=== PATIENT | male | born 1970 | race Caucasian/White ===

== ENCOUNTER 2021-06-27 13:24 | Outpatient (CLI) | payer BC, SELFPAY | END 2021-06-27 13:25 | disposition home or self-care (01) | LOC: WOUND 13:30 | PROVIDERS: Family Provider Nurse Practitioner; PCP Nurse Practitioner; Visit Provider Emergency Medicine | DX: I96 Gangrene, not elsewhere classified (principal); I87.2 Venous insufficiency (chronic) (peripheral); L97.322 Non-pressure chronic ulcer of left ankle with fat layer exposed; F17.210 Nicotine dependence, cigarettes, uncomplicated | CPT/HCPCS: 11042; 87070; 87176; 87205; 99213 ==

== ENCOUNTER 2021-06-27 15:48 | Outpatient (CLI) | payer BC, SELFPAY ==
--- NOTE | 2021-06-27 15:52 | XRR_ITS ---
PROCEDURE INFORMATION: Exam: XR Left Foot Exam date and time: 06/27/2021 3:52 PM Age: 50 years old Clinical indication: Condition or disease; Other: , Non pressure ulcer; Patient HX: Non healing ulcer since apr 10. Pain medial side of left heel area; Additional info: Venous insufficiency, non pressure ulcer, chronic ulcer lt colleen TECHNIQUE: Imaging protocol: XR Left foot. Views: 3 or more views. COMPARISON: No relevant prior studies available. FINDINGS: Bones/joints: Osseous structures are intact. No irregular osseous erosions. Prominent enthesophyte at the Achilles insertion. Small plantar calcaneal spur. Soft tissues: Normal. XR/XR foot LT min 3V* [id number] IMPRESSION: No evidence of osteomyelitis.
== END 2021-06-27 15:49 | disposition home or self-care (01) ==
PROVIDERS: Family Provider Nurse Practitioner; Visit Provider Emergency Medicine
DX: I87.2 Venous insufficiency (chronic) (peripheral) (principal); L97.522 Non-pressure chronic ulcer of other part of left foot with fat layer exposed
CPT/HCPCS: 73630

== ENCOUNTER 2021-06-30 08:18 | Outpatient (CLI) | payer BC, SELFPAY ==
--- NOTE | 2021-06-30 08:24 | NM_ITS ---
WS: [id number] THREE-PHASE BONE SCAN HISTORY: NON PRESSURE CHRONIC ULCER L FOOT/? OSTEOMYELITIS COMPARISON: LEFT foot radiograph 06/27/2021. Patient is is injected with 25.1 mCi Tc99m HDP intravenously. Immediate angiographic phase imaging is performed over the area of concern. Static blood pool imaging also performed. Two-hour whole-body sc intigrams performed in anterior and posterior projections. Additional large field of view imaging sub mitted as necessary. Angiographic phase and blood pool phase imaging negative for acute process involving the LEFT foot. V ayad minimal hyperemia in the mid RIGHT foot. On the delayed imaging there is moderate increased uptake bilaterally within the mid feet. This is pr obably due to osteoarthritic changes. Seen on the lateral projection of the LEFT foot is a focal area of intense uptake. This corresponds to the enthesopathy at the Achilles tendon. Scan is not positive in all 3 phases in this location, only on the delayed imaging. Mild AC joint osteoarthritis. Normal soft tissue uptake. Renal uptake is identified. NM/NM bone 3 phase 23636 IMPRESSION: 1. Three-phase bone scan does not confirm osteomyelitis or cellulitis. 2. There is a focal area of moderate uptake involving the posterior calcaneus at the site of the enthesopathy associated with the Achilles tendon. No fractur e identified on the radiograph. May represent an acute inflammatory process of the enthesopathy. 3. Bilateral midfoot osteoarthritis.
== END 2021-06-30 08:19 | disposition home or self-care (01) ==
LOC: RAD 08:22
PROVIDERS: PCP Family Medicine; Visit Provider Emergency Medicine
DX: L97.529 Non-pressure chronic ulcer of other part of left foot with unspecified severity (principal); M19.072 Primary osteoarthritis, left ankle and foot
CPT/HCPCS: 78315; A9561

== ENCOUNTER 2021-07-03 14:59 | Outpatient (CLI) | payer BC, SELFPAY ==
--- NOTE | 2021-07-03 15:08 | USCV_ITS ---
Wagner Linares Age: 50 Gender: M : 1970 Exam Date: 07/03/2021 16:17 Ordering Phys: Taisha Rosa DO Technologist: REBECA Exam Location: [facility] [place] Indication: HISTORY: PROCEDURES: FINDINGS: Reflux is noted within the right popliteal vein, GSV MID, GSV at the below-knee, and SSV MID. There is reflux noted in the left popliteal vein. Patient had GSV removed in 2008 in the left lower extremity. Left SSV not identified today. There appears to be thrombus within the varicosities located in the left groin and prox thigh. CONCLUSIONS 1. No evidence of DVT bilaterally. 2. Significant reflux of greater than 1000 ms were noted in the popliteal veins bilaterally 3. The greater saphenous vein tributaries in the left groin were found to have varicosities with thrombus formation(superficial vein thrombosis) 4. Significant venous reflux of greater than 500 ms were noted on the right side at the mid greater saphenous vein, below-knee greater saphenous vein and mid small saphenous vein segments. These venous segments where found to be measuring anywhere from 0.3 to 0.47 cm in diameter. The greater saphenous vein segments were greater than 1 cm deep from the surface. The small saphenous vein segment was 0.9 cm deep from the surface 5. The greater saphenous vein on the left side apparently was removed in 2008. The small saphenous vein segment on the left side could not be identified. Dr Alis Awad MD [facility] (Electronically Signed) Final Date: 07 July 2021 09:14 S
== END 2021-07-03 15:00 | disposition home or self-care (01) ==
LOC: RAD 15:00
PROVIDERS: PCP Family Medicine; Visit Provider Emergency Medicine
DX: L97.522 Non-pressure chronic ulcer of other part of left foot with fat layer exposed (principal); I87.2 Venous insufficiency (chronic) (peripheral)
CPT/HCPCS: 93970

== ENCOUNTER 2021-07-04 14:05 | Outpatient (CLI) | payer BC, SELFPAY | END 2021-07-04 14:06 | disposition home or self-care (01) | LOC: WOUND 14:06 | PROVIDERS: PCP Family Medicine; Visit Provider Emergency Medicine | DX: I96 Gangrene, not elsewhere classified (principal); I87.2 Venous insufficiency (chronic) (peripheral); L97.322 Non-pressure chronic ulcer of left ankle with fat layer exposed; F17.210 Nicotine dependence, cigarettes, uncomplicated | CPT/HCPCS: 11042; 99212 ==

== ENCOUNTER 2021-07-11 13:28 | Outpatient (CLI) | payer BC, SELFPAY | END 2021-07-11 13:29 | disposition home or self-care (01) | LOC: WOUND 13:29 | PROVIDERS: PCP Family Medicine; Visit Provider Emergency Medicine | DX: I87.2 Venous insufficiency (chronic) (peripheral) (principal); L97.522 Non-pressure chronic ulcer of other part of left foot with fat layer exposed | CPT/HCPCS: 11042 ==

== ENCOUNTER 2021-07-18 10:22 | Outpatient (CLI) | payer BC, SELFPAY | END 2021-07-18 10:23 | disposition home or self-care (01) | LOC: WOUND 10:23 | PROVIDERS: PCP Family Medicine; Visit Provider Emergency Medicine | DX: Z09 Encounter for follow-up examination after completed treatment for conditions other than malignant neoplasm (principal); F17.210 Nicotine dependence, cigarettes, uncomplicated | CPT/HCPCS: 99212 ==

== ENCOUNTER 2021-07-25 10:26 | Outpatient (CLI) | payer BC, SELFPAY | END 2021-07-25 10:27 | disposition home or self-care (01) | LOC: WOUND 10:26 | PROVIDERS: PCP Family Medicine; Visit Provider Emergency Medicine | DX: I87.2 Venous insufficiency (chronic) (peripheral) (principal); L97.322 Non-pressure chronic ulcer of left ankle with fat layer exposed; F17.210 Nicotine dependence, cigarettes, uncomplicated | CPT/HCPCS: 11042 ==

== ENCOUNTER 2021-08-01 10:48 | Outpatient (CLI) | payer BC, SELFPAY | END 2021-08-01 10:49 | disposition home or self-care (01) | LOC: WOUND 10:49 | PROVIDERS: PCP Family Medicine; Visit Provider Emergency Medicine | DX: I87.2 Venous insufficiency (chronic) (peripheral) (principal); L97.522 Non-pressure chronic ulcer of other part of left foot with fat layer exposed; F17.210 Nicotine dependence, cigarettes, uncomplicated | CPT/HCPCS: 99212 ==

== ENCOUNTER 2021-08-08 11:00 | Outpatient (CLI) | payer BC, SELFPAY | END 2021-08-08 11:01 | disposition home or self-care (01) | LOC: WOUND 11:01 | PROVIDERS: PCP Family Medicine; Visit Provider Thoracic Surgery (Cardiothoracic Vascular Surgery) | DX: I96 Gangrene, not elsewhere classified (principal); L97.322 Non-pressure chronic ulcer of left ankle with fat layer exposed; I87.2 Venous insufficiency (chronic) (peripheral); F17.210 Nicotine dependence, cigarettes, uncomplicated | CPT/HCPCS: 97597 ==

== ENCOUNTER 2021-08-15 10:34 | Outpatient (CLI) | payer BC, SELFPAY | END 2021-08-15 10:35 | disposition home or self-care (01) | LOC: WOUND 10:34 | PROVIDERS: PCP Family Medicine; Visit Provider Emergency Medicine | DX: I87.2 Venous insufficiency (chronic) (peripheral) (principal); L97.422 Non-pressure chronic ulcer of left heel and midfoot with fat layer exposed; F17.210 Nicotine dependence, cigarettes, uncomplicated | CPT/HCPCS: 11042; 99212 ==

== ENCOUNTER 2021-08-22 11:00 | Outpatient (CLI) | payer BC, SELFPAY | END 2021-08-22 11:01 | disposition home or self-care (01) | LOC: WOUND 13:14 | PROVIDERS: PCP Family Medicine; Visit Provider Emergency Medicine | DX: I87.2 Venous insufficiency (chronic) (peripheral) (principal); L97.322 Non-pressure chronic ulcer of left ankle with fat layer exposed; F17.210 Nicotine dependence, cigarettes, uncomplicated | CPT/HCPCS: 99212 ==